=== PATIENT | male | born 1970 | race Caucasian/White ===

== ENCOUNTER → 2017-04-11 | Outpatient (CLI) | payer BC ==
[~2017-04-11] MED LIST: CIPRO 250MG TA250 MG PO; NAPROSYN 500MG500 MG PO; PREDNISONE 20MG20 MG PO; TYLENOL W/CODEI1 TA2 PO
--- NOTE | 2017-04-11 15:18 | RADIOLOGY REPORT PS360 ---
KNEE-3 VIEWS-RT HISTORY: RT KNEE PAIN ORDERING PHYSICIAN: Kael Goodson MD PATIENT AGE: 46 years COMPARISON: None FINDINGS: No fracture or dislocation. No lytic or blastic change. Normal mineralization. No significant arthritic changes evident. No other significant findings IMPRESSION: Negative Knee
== END ==
LOC: RAD 14:55
DX: M25.561 Pain in right knee (principal)